=== PATIENT | female | born 2000 | race Caucasian/White ===

== ENCOUNTER 2023-02-04 08:00 | Outpatient (CLI) | payer BC, OTHER ==
[2023-02-07 20:07] LABS: GIARDIA LAMBLIA AG EIA Negative (Negative)
== END 2023-02-04 23:59 | disposition home or self-care (01) ==
LOC: LAB.S 08:00
PROVIDERS: ATTEND Registered Nurse
DX: R10.9 Unspecified abdominal pain (principal); R19.7 Diarrhea, unspecified
CPT/HCPCS: 87045; 87046; 87177; 87209; 87329; 87427